=== PATIENT | male | born 1980 | race Caucasian/White ===

== ENCOUNTER 2018-06-03 16:14 | Emergency (ER) | payer OTHER ==
[2018-06-03 16:31] VITALS: BP 126/81; PULSE 107; TEMP 99; BMI 34.7
--- NOTE | 2018-06-03 16:46 | PDOC ---
Attending Attestation - HPI HPI: 06/03/18 18:14 The patient is a 38-year-old male with no known past medical history presents to the emergency department via EMS s/p a fall. The patient presents after falling between a trailer and a truck. The patient reports following the incident he was unable to ambulate and was carried. Enroute to the ED, the medic placed a straight leg brace to the leg. Denies head injury, LOC. Denies the use of medication. The patient reports he was admitted to the hospital about 6-7 months ago for kidney stones. The patient is unsure about his last tetanus shots. Denies back pain, abdominal pain, neck pain, dysuria, fever, or chills. Allergies: NKA Social history: No past or present use of tobacco, alcohol or recreational drug use reported. Surgical history: Patient denies any past surgical history. PCP: None reported. - Physicial Exam PE: 06/03/18 18:14 GENERAL: Awake, alert, and fully oriented, in no acute distress HEAD: No signs of trauma EYES: PERRLA, EOMI, sclera anicteric, conjunctiva clear ENT: Auricles normal inspection, hearing grossly normal, nares patent, oropharynx clear without exudates. Moist mucosa NECK: Normal ROM, supple, no lymphadenopathy, JVD, or masses LUNGS: Breath sounds equal, clear to auscultation bilaterally. No wheezes, and no crackles HEART: Regular rate and rhythm, normal S1 and S2, no murmurs, rubs or gallops ABDOMEN: No flank tenderness. Soft, nontender, normoactive bowel sounds. No guarding, no rebound. No masses Musculoskeletal: (+) No CV or spinal tenderness. No flank tenderness, pelvic stable EXTREMITIES: Pain to the medial aspect of the knee. straight leg brace placed by ems. no edema. No clubbing or cyanosis. No cords, erythema, or tenderness Neurovascular: R. Lower extremity large effusion. Brisk capillary refill to the toes. Sensation intact. Pedal and radial pulse intact. NEUROLOGICAL: Neuro intact. Cranial nerves II through XII grossly intact. Normal speech. SKIN: Abrasion R. medial aspect to the tibial without bleeding. Warm, Dry, normal turgor, no rashes or lesions noted. - Medical Decision Making 06/03/18 18:14 Documentation prepared by Ludivina Sandoval, acting as medical anthropologist for Nasrin Frankel DO. <Ludivina Sandoval - Last Filed: 06/03/18 18:14> - Resident Resident Name: YuanSailajay - ED Attending Attestation I have performed the following: I have examined & evaluated the patient, The case was reviewed & discussed with the resident, I agree w/resident's findings & plan, Exceptions are as noted - Medical Decision Making 06/03/18 16:46 I, Dr. Nasrin Frankel, DO, attest that this document has been prepared under my direction and personally reviewed by me in its entirety. I further attest, that it accurately reflects all work, treatment, procedures and medical decision -making performed by me. 06/03/18 17:22 a/p: 38yo male with trauma to the R knee/prox tib/fib -pt with straight leg brace from meds -abrasion to medial aspect of tib - tetanus will need to be updated -will xray femur, knee, tib/fib for eval of fx -will give pain control -pt denies head injury/neck pain -suspect fx vs internal derangement of ligaments of knee -will most likely need straight leg brace vs splint and crutches with orthopedic eval 06/03/18 18:25 xrays reviewed by radiology - alignment normal, no fx effusion to medial aspect of knee will place in straight leg brace and crutches will give work note stable for d/c to home 06/03/18 19:00 pt placed in straight leg brace by the resident and given crutches resident discussed the need to follow up with orthopedics <Nasrin Frankel - Last Filed: 06/03/18 19:01> Discharge Disposition <Ludivina Sandoval - Last Filed: 06/03/18 18:14> - Discharge Dispostion Decision to Admit order: No <Nasrin Frankel - Last Filed: 06/03/18 19:01> - Diagnosis Internal derangement of knee, Knee effusion, right - Discharge Dispostion Disposition: HOME Condition at time of disposition: Improved - Prescriptions Prescriptions: Oxycodone HCl/Acetaminophen [Percocet 5-325 mg Tablet] 1 tab PO Q6H PRN #10 tablet MDD 4 tabs per day PRN Reason: Pain - Referrals Referrals: Wilfred Valentin MD [Staff Physician] - Yash Heredia MD [Staff Physician] - - Patient Instructions Printed Discharge Instructions: How to Prevent Falls Additional Instructions: Follow up with Dr. Heredia by calling him as soon as you can. Keep knee in brace and use crutches until then. Come back to the ER for any new, worsening or concerning symptom. Print Language: BELIZEAN - Post Discharge Activity Work/School Note: Back to Work
--- NOTE | 2018-06-03 17:02 | PDOC ---
History of Present Illness - General Chief Complaint: Injury Stated Complaint: FALL Time Seen by Provider: 06/03/18 16:20 History Source: Patient Exam Limitations: No Limitations - History of Present Illness Initial Comments: 06/03/18 17:09 38 no pmh presents to the ED after falling at work. He slipped between his truck and his trailer, tangled his right knee in the metal triangle and fell sideways. He wasn't able to support his own weight after that. He noticed a swelling over the medial right knee and pain is getting worse. Able to wiggle toes but states that the leg feels numb now. Denies hitting his head or LOC. Past History - Past Medical History Allergies/Adverse Reactions: Allergies Allergy/AdvReac Type Severity Reaction Status Date / Time No Known Allergies Allergy Verified 06/03/18 16:19 Home Medications: Ambulatory Orders NK [No Known Home Medication] 06/03/18 COPD: No - Suicide/Smoking/Psychosocial Hx Smoking History: Never smoked Review of Systems - Review of Systems Able to Perform ROS?: Yes Constitutional: No: Symptoms Reported HEENTM: No: Symptoms Reported Respiratory: No: Symptoms reported Cardiac (ROS): No: Symptoms Reported ABD/GI: No: Symptoms Reported Musculoskeletal: Yes: See HPI Neurological: No: Symptoms reported All Other Systems: Reviewed and Negative *Physical Exam - Vital Signs Last Vital Signs Temp Pulse Resp BP Pulse Ox 99.0 F 107 H 20 126/81 97 06/03/18 16:15 06/03/18 16:15 06/03/18 16:15 06/03/18 16:15 06/03/18 16:15 - Physical Exam General Appearance: Yes: Nourished, Appropriately Dressed, Moderate Distress HEENT: positive: EOMI, LORRIE, Normal ENT Inspection Respiratory/Chest: positive: Lungs Clear, Normal Breath Sounds. negative: Chest Tender, Respiratory Distress Cardiovascular: positive: Regular Rhythm, S1, S2, Tachycardia Gastrointestinal/Abdominal: positive: Normal Bowel Sounds, Flat, Soft. negative : Tender Musculoskeletal: positive: Normal Inspection. negative: CVA Tenderness Extremity: positive: Normal Capillary Refill, Other (abrasion over medial knee, swelling. ). negative: Normal Inspection, Normal Range of Motion Integumentary: positive: Normal Color, Dry, Warm Neurologic: positive: Fully Oriented, Alert, Normal Mood/Affect, Normal Response ED Treatment Course - RADIOLOGY Radiology Studies Ordered: Category Date Time Status FEMUR-RIGHT [RAD] Stat Radiology 06/03/18 16:22 Ordered KNEE 3 POS-RIGHT [RAD] Stat Radiology 06/03/18 16:22 Ordered LEG TIB/FIB-RIGHT [RAD] Stat Radiology 06/03/18 16:22 Ordered Medical Decision Making - Medical Decision Making 06/03/18 17:15 Xray knee, femur, tib.fib pain control 06/03/18 18:27 Xray negative for fractures. Will dc with ortho follow up and knee brace. *DC/Admit/Observation/Transfer Diagnosis at time of Disposition: Knee effusion, right - Discharge Dispostion Disposition: HOME Condition at time of disposition: Improved Decision to Admit order: No - Referrals Referrals: Yash Heredia MD [Staff Physician] - - Patient Instructions Printed Discharge Instructions: How to Prevent Falls Additional Instructions: Follow up with Dr. Heredia by calling him as soon as you can. Keep knee in brace and use crutches until then. Come back to the ER for any new, worsening or concerning symptom. Print Language: KINYARWANDA - Post Discharge Activity Forms/Work/School Notes: Back to Work
[2018-06-03] MEDS ORDERED: DIPHTH,PERTUSS(ACELL),TET 0.5 ML DISP.SYRIN IM ONE (17:22)
== END 2018-06-03 19:05 | disposition home or self-care (01) ==
LOC: JER 16:14
PROC: 3E0234Z Introduction of Serum, Toxoid and Vaccine into Muscle, Percutaneous Approach (ICD-10-PCS; principal; 2018-06-03)
PROC: 2W3QX3Z Immobilization of Right Lower Leg using Brace (ICD-10-PCS; 2018-06-03)
DX: M23.8X1 Other internal derangements of right knee (principal); M25.461 Effusion, right knee; V68.0XXA Driver of heavy transport vehicle injured in noncollision transport accident in nontraffic accident, initial encounter; Y92.488 Other paved roadways as the place of occurrence of the external cause; Y93.H2 Activity, gardening and landscaping; Y99.0 Civilian activity done for income or pay
CPT/HCPCS: 73552-TC-RT-FY; 73562-TC-RT-FY; 73590-TC-RT-FY; 90715; 99281-25